=== PATIENT | female | born 1965 | race Caucasian/White ===

== ENCOUNTER 2018-09-01 15:02 | Inpatient (IN) | payer MEDICARE, MEDICAID ==
[~2018-09-01] VITALS: Ht 157.5 cm; Wt 50.8 kg
[2018-09-01] MEDS ORDERED: OXCA300T29 PO (20:50)
[2018-09-01] MEDS ORDERED: GABA-531 PO (20:50)
[2018-09-01 21:15] VITALS: BP 101/71
[2018-09-01 21:22] VITALS: BP 101/71
[2018-09-02 06:26] VITALS: BP 106/72
[2018-09-02] MEDS: LORazepam 2 MG TABLET PO PRN (06:57)
[2018-09-02 08:21] VITALS: BP 103/60
[2018-09-02 08:34] LABS: BASOPHILS % (AUTO) 1.1 % (0.0-2.0); EOSINOPHILS % (AUTO) 1.6 % (1.0-6.0); HEMATOCRIT 35.5 % (36-46); LYMPHOCYTES # (AUTO) 1.2 K/uL (1.0-4.8); LYMPHOCYTES % (AUTO) 37.5 % (22.0-44.0); MEAN CORPUSCULAR HEMOGLOBIN 31.7 pg (26.0-34.0); MEAN CORPUSCULAR HGB CONC 33.8 G/dL (31.0-37.0); MEAN CORPUSCULAR VOLUME 94 fL (80-100); MONOCYTES # (AUTO) 0.5 K/uL (0.1-1.0); MONOCYTES % (AUTO) 15.2 % (2.0-9.0); NEUTROPHILS # (AUTO) 1.5 K/uL (1.8-7.7); NEUTROPHILS % (AUTO) 44.6 % (40.0-70.0); PLATELET COUNT (AUTO) 304 K/uL (150-450); RED BLOOD CELL COUNT(AUTO) 3.79 MIL/uL (4.00-5.20); RED CELL DISTRIBUTION WIDTH 13.8 % (11.5-14.5)
[2018-09-02 09:19] LABS: ALANINE AMINOTRANSFERASE 24 U/L (12-78); ALKALINE PHOSPHATASE 85 U/L (46-116); ANION GAP 9 mmol/L (8-16); ASPARTATE AMINOTRANSFERASE 39 U/L (15-37); BILIRUBIN,TOTAL 0.4 mg/dL (0.1-1.0); CALCIUM, TOTAL 8.6 mg/dL (8.8-10.5); CARBON DIOXIDE 28 mmol/L (22-29); CHLORIDE 100 mmol/L (98-107); CHOL/HDL RATIO 2.4 (3.9-5.7); CHOLESTEROL 194 mg/dL (131-200); FREE T4 (FREE THYROXINE) 1.33 ng/dL (0.76-1.46); GLOMERULAR FILTR. RATE CALC > 60 mL/min (>60); GLUCOSE,RANDOM 85 mg/dL (70-110); HCG,QUANTITATIVE 2 mIU/mL (0-6); HDL CHOLESTEROL 80 mg/dL (40-60); LDL CHOL (CALC.) 105 mg/dL (0-130); POTASSIUM 3.8 mmol/L (3.5-5.1); SODIUM SERUM 137 mmol/L (136-145); THYROID STIMULATING HORMONE 1.64 uIU/mL (0.36-3.74); TOTAL PROTEIN, SERUM 7.1 g/dL (6.4-8.2); TRIGLYCERIDES 44 mg/dL (15-150); UREA NITROGEN, BLOOD 11 mg/dL (7-18)
[2018-09-02 09:47] LABS: HEMOGLOBIN A1C 5.4 % (4.5-6.2)
[2018-09-02] MEDS: FOLIC ACID 1 MG TABLET PO SCH (12:49)
[2018-09-02] MEDS: GABAPENTIN 300 MG CAPSULE PO SCH ×2 (12:49→16:31)
[2018-09-02] MEDS ORDERED: DOCUSATE SODIUM 100 MG CAPSULE PO PRN (14:00)
[2018-09-02] MEDS ORDERED: PETROLATUM,WHITE 71 GM JELLY TP PRN (14:00)
[2018-09-02] MEDS ORDERED: NICOTINE 14 MG/24 HOUR PATCH TD PRN (14:00)
[2018-09-02] MEDS ORDERED: MAGNESIUM HYDROXIDE SUSPENSION 30 ML UDCUP PO PRN (14:00)
[2018-09-02] MEDS ORDERED: GuaiFENesin/D-METHORPHAN [SUGAR-FREE] 200-20MG/10 ML SYRUP UDCUP PO PRN (14:00)
[2018-09-02] MEDS ORDERED: CloNIDine HCL 0.1 MG TABLET PO PRN (14:00)
[2018-09-02] MEDS ORDERED: IBUPROFEN 400 MG TABLET PO PRN (14:00)
[2018-09-02] MEDS ORDERED: ONDANSETRON HCL 4 MG TABLET PO PRN (14:00)
[2018-09-02] MEDS ORDERED: MAG HYDROX/AL HYDROX/SIMETH ES 30 ML SUSPENSION UDCUP PO PRN (14:00)
[2018-09-02] MEDS ORDERED: ALBUTEROL SULFATE HFA 90 MCG/PUFF 8 GM INHALER IH PRN (14:00)
[2018-09-02] MEDS ORDERED: LOPERAMIDE HCL 2 MG CAPSULE PO PRN (14:00)
[2018-09-02] MEDS ORDERED: ACETAMINOPHEN 325 MG TABLET PO PRN (14:00)
[2018-09-02 16:03] VITALS: BP 108/66
[2018-09-02] MEDS: OXcarbazepine 300 MG TABLET PO SCH (16:31)
[2018-09-03] MEDS: ZOLPIDEM TARTRATE 10 MG TABLET PO PRN ×2 (00:58→20:31)
[2018-09-03 01:14] VITALS: BP 114/67
[2018-09-03] MEDS: LORazepam 2 MG TABLET PO PRN ×3 (06:44→20:55)
[2018-09-03] MEDS: GABAPENTIN 300 MG CAPSULE PO SCH ×3 (08:25→16:51)
[2018-09-03] MEDS: OXcarbazepine 300 MG TABLET PO SCH ×2 (08:25→16:51)
[2018-09-03] MEDS: FOLIC ACID 1 MG TABLET PO SCH (08:25)
[2018-09-03 08:36] VITALS: BP 108/65
[2018-09-03] MEDS ORDERED: BACITRACIN 28.4 GM OINTMENT TP PRN (10:30)
[2018-09-03 16:06] VITALS: BP 99/59
[2018-09-04 00:58] VITALS: BP 103/62
[2018-09-04 01:45] VITALS: BP 110/68
[2018-09-04] MEDS: LORazepam 2 MG TABLET PO PRN ×4 (01:51→20:45)
[2018-09-04] MEDS: HALOPERIDOL 5 MG TABLET PO PRN (06:01)
[2018-09-04] MEDS: OXcarbazepine 300 MG TABLET PO SCH ×2 (08:09→16:24)
[2018-09-04] MEDS: GABAPENTIN 300 MG CAPSULE PO SCH ×3 (08:09→16:24)
[2018-09-04] MEDS: FOLIC ACID 1 MG TABLET PO SCH (08:09)
[2018-09-04 08:13] VITALS: BP 106/69
[2018-09-04 17:41] VITALS: BP 123/82
[2018-09-05] MEDS: ZOLPIDEM TARTRATE 10 MG TABLET PO PRN (00:25)
[2018-09-05 01:15] VITALS: BP 105/67
[2018-09-05 05:16] VITALS: BP 110/70
[2018-09-05] MEDS: LORazepam 2 MG TABLET PO PRN ×2 (05:17→19:28)
[2018-09-05 08:11] VITALS: BP 102/65
[2018-09-05] MEDS: GABAPENTIN 300 MG CAPSULE PO SCH ×3 (08:17→16:36)
[2018-09-05] MEDS: FOLIC ACID 1 MG TABLET PO SCH (08:18)
[2018-09-05] MEDS: OXcarbazepine 300 MG TABLET PO SCH ×2 (08:18→16:36)
[2018-09-05] MEDS: HALOPERIDOL 5 MG TABLET PO PRN (08:56)
[2018-09-05 16:07] VITALS: BP 104/60
[2018-09-05 20:00] VITALS: BP 109/68
[2018-09-06] MEDS: ZOLPIDEM TARTRATE 10 MG TABLET PO PRN (01:01)
[2018-09-06 01:03] VITALS: BP 110/70
[2018-09-06] MEDS: LORazepam 2 MG TABLET PO PRN (04:29)
[2018-09-06] MEDS: HALOPERIDOL 5 MG TABLET PO PRN (06:38)
[2018-09-06 08:30] VITALS: BP 109/71
[2018-09-06] MEDS: FOLIC ACID 1 MG TABLET PO SCH (08:56)
[2018-09-06] MEDS: OXcarbazepine 300 MG TABLET PO SCH (08:56)
[2018-09-06] MEDS: GABAPENTIN 300 MG CAPSULE PO SCH ×2 (08:56→12:51)
== END 2018-09-06 14:30 | disposition home or self-care (01) | DRG 885 ==
LOC: B2X 20:40
PROVIDERS: ADMIT Psychiatry & Neurology Psychiatry; ATTEND Psychiatry & Neurology Psychiatry
DX: F25.1 Schizoaffective disorder, depressive type (principal); E44.0 Moderate protein-calorie malnutrition; D72.819 Decreased white blood cell count, unspecified; E83.51 Hypocalcemia; F15.90 Other stimulant use, unspecified, uncomplicated; F41.9 Anxiety disorder, unspecified; Z68.20 Body mass index [BMI] 20.0-20.9, adult; Z91.83 Wandering in diseases classified elsewhere
CPT/HCPCS: 80074; 83036; 84439; 84443